=== PATIENT | male | born 1990 | race Caucasian/White ===

== ENCOUNTER 2019-12-26 14:46 | Emergency (ER) | payer OTHER ==
--- NOTE | 2019-12-26 15:02 | ER Document Report ---
ED Medical Screen (RME) - General Stated Complaint: SYNCOPE Time Seen by Provider: 12/26/19 14:58 Mode of Arrival: Ambulatory Information source: Patient Notes: Patient states that he has had left-sided chest pain for the past 3 days. Patient reports syncopal episode x2 that occurred today. Patient states he had one episode around 12:00 and then 1 just prior to arrival. Patient did drive himself here after this. Patient states that he does feel lightheaded. Patient denies any underlying medical history. Patient denies any history of seizures. Syncopal episodes were unwitnessed. I have greeted and performed a rapid initial assessment of this patient. A comprehensive ED assessment and evaluation of the patient, analysis of test results and completion of the medical decision making process will be conducted by additional ED providers. - Related Data Allergies/Adverse Reactions: No Known Allergies Allergy (Verified 12/26/19 14:53) Physical Exam - General General appearance: Alert - Cardiovascular Rhythm: Regular Heart sounds: S1 appreciated, S2 appreciated - Skin Skin Color: Pale
[2019-12-26 15:31] LABS: ABSOLUTE EOSINOPHILS # (AUTO) 0.1 10^3/uL (0.0-0.6); ABSOLUTE LYMPHOCYTES (AUTO) 1.5 10^3/uL (0.5-4.7); ABSOLUTE MONOCYTES (AUTO) 0.5 10^3/uL (0.1-1.4); ABSOLUTE NEUT (AUTO) 4.5 10^3/uL (1.7-8.2); BASOPHILS % (AUTO) 0.8 % (0-2); EOSINOPHILS % (AUTO) 1.1 % (0-6); HEMATOCRIT 43.4 % (37.9-51.0); HEMOGLOBIN 15.2 g/dL (13.5-17.0); LYMPHOCYTES % (AUTO) 21.9 % (13-45); MEAN CORPUSCULAR HEMOGLOBIN 31.6 pg (27.0-33.4); MEAN CORPUSCULAR HGB CONC 35.1 g/dL (32.0-36.0); MEAN CORPUSCULAR VOLUME 90 fl (80-97); MONOCYTES % (AUTO) 7.8 % (3-13); PLATELET COUNT 302 10^3/uL (150-450); RED CELL DISTRIBUTION WIDTH 12.4 % (11.5-14.0); SEGMENTED NEUTROPHILS % (AUTO) 68.4 % (42-78); TOTAL CELLS COUNTED % (AUTO) 100 %; WHITE BLOOD COUNT 6.6 10^3/uL (4.0-10.5)
--- NOTE | 2019-12-26 15:42 | RADIOLOGY REPORT (SQ) ---
EXAM DESCRIPTION: CHEST 2 VIEWS IMAGES COMPLETED DATE/TIME: 12/26/2019 3:33 pm REASON FOR STUDY: cp COMPARISON: None. EXAM PARAMETERS: NUMBER OF VIEWS: two views TECHNIQUE: Digital Frontal and Lateral radiographic views of the chest acquired. RADIATION DOSE: NA LIMITATIONS: none FINDINGS: LUNGS AND PLEURA: No opacities, masses or pneumothorax. No pleural effusion. MEDIASTINUM AND HILAR STRUCTURES: No masses or contour abnormalities. HEART AND VASCULAR STRUCTURES: Heart normal size. No evidence for failure. BONES: No acute findings. HARDWARE: None in the chest. OTHER: No other significant finding. IMPRESSION: NO ACUTE RADIOGRAPHIC FINDING IN THE CHEST. TECHNICAL DOCUMENTATION: JOB ID: [id number] [employer]- All Rights Reserved Reading location - IP/workstation name: [email or web address]
[2019-12-26 15:47] LABS: AMORPHOUS SEDIMENT,URINE TRACE /HPF; APPEARANCE,URINE SLIGHTLY-CLOUDY; BILIRUBIN,URINE NEGATIVE (NEGATIVE); COLOR,URINE YELLOW; GLUCOSE, URINE NEGATIVE (NEGATIVE); KETONES,URINE NEGATIVE (NEGATIVE); LEUKOCYTE ESTERASE,URINE NEGATIVE (NEGATIVE); NITRITE,URINE NEGATIVE (NEGATIVE); PROTEIN,URINE NEGATIVE (NEGATIVE); URINE SPECIFIC GRAVITY 1.012; UROBILINOGEN,URINE NEGATIVE mg/dL (<2.0)
[2019-12-26] MEDS ORDERED: IBUPROFEN 600 MG TABLET PO ONE (15:53)
[2019-12-26] MEDS ORDERED: NORMAL SALINE 1000 ML 1,000 ML IV ONE (15:55)
--- NOTE | 2019-12-26 16:02 | ER Document Report ---
ED Syncope and Near Syncope - General Chief Complaint: Syncope Stated Complaint: SYNCOPE Time Seen by Provider: 12/26/19 14:58 Mode of Arrival: Ambulatory Notes: Patient is a 29-year-old male presents emergency department with a chief complaint of chest pain and 2 syncopal episodes. Patient states that he started to have left-sided chest pain about 3 days ago. States that when he lifts his arms up, pain worse. Patient has not tried any medications to help with the pain. Describes the pain as a dull, aching pain. Patient states that he was sitting up at his desk at home and ended up passing out around noon today. He then went to sit back down and had a second episode of syncope prior to coming here to the emergency department. Patient denies any past medical history. He does not take any medications on a daily basis. - Related Data Allergies/Adverse Reactions: No Known Allergies Allergy (Verified 12/26/19 14:53) Past Medical History - General Information source: Patient - Social History Smoking Status: Former Smoker Chew tobacco use (# tins/day): No Frequency of alcohol use: Occasional Drug Abuse: None Family History: Reviewed & Not Pertinent Patient has suicidal ideation: No Patient has homicidal ideation: No Review of Systems - Review of Systems Notes: REVIEW OF SYSTEMS: CONSTITUTIONAL : Denies recent illness. Denies recent unintentional weight loss. Denies fever, chills, or sweats. EENT: Denies eye, ear, throat, or mouth pain, discharge, or symptoms. Denies nasal or sinus congestion. CARDIOVASCULAR: See HPI. RESPIRATORY: Denies shortness of breath, cough, congestion, difficulty breathing, or wheezing. GASTROINTESTINAL: Denies nausea, vomiting, and diarrhea. Denies abdominal pain. Denies constipation. GENITOURINARY: Denies difficulty urinating, burning, blood in urine, urgency or frequency. MUSCULOSKELETAL: Denies neck and back pain. Denies joint pain or swelling. SKIN: Denies rash, itchiness, or lesions HEMATOLOGIC : Denies easy bruising or bleeding. LYMPHATIC: Denies swollen, painful, enlarged glands. NEUROLOGICAL: Denies no numbness or tingling denies weakness. Denies headache. Denies alteration in speech. See HPI. PSYCHIATRIC: Denies stress, anxiety, alteration in sleep patterns, or depression. All other systems reviewed and negative. Physical Exam - Vital signs Vitals: Temp Pulse Resp BP Pulse Ox 98.6 F 55 L 16 113/59 L 100 12/26/19 14:52 12/26/19 14:52 12/26/19 14:52 12/26/19 14:52 12/26/19 14:52 - Notes Notes: PHYSICAL EXAMINATION: GENERAL: Appears well, healthy, well-nourished, no acute distress. HEAD: Normocephalic, atraumatic. EYES: PERRL, conjunctiva normal, all extraocular movements intact, sclera nonicteric ENT: Moist mucous membranes. NECK: Supple, no noticeable swelling, redness, rash. Normal range of motion. LUNGS: Equal breath sounds bilaterally and clear to auscultation. No wheezes rales or rhonchi. CARDIOVASCULAR: S1-S2, regular rate, regular rhythm. Radial pulses 2+, normal. Tenderness upon palpation at left anterior wall and left posterior chest wall. ABDOMEN: Normoactive bowel sounds. Soft, nontender, no guarding, no rebound tenderness, and no masses palpated. EXTREMITIES: Normal strength and range of motion, no pitting or edema. No cyanosis. NEUROLOGICAL: Moves all extremities upon command. Strength 5/5 in all extremities. PSYCH: Normal mood, normal affect. SKIN: Warm, dry. No rash, lesions, ulcerations noted. Normal skin turgor. Course - Re-evaluation Re-evalutation: 12/26/19 17:05 Patient's labs are essentially unremarkable. Urinalysis and urine toxicology is unremarkable. Chest x-ray is normal. Orthostatic vital signs reported to me by primary RN are normal. I did very lengthy conversation with patient in regards to his stress level. Patient states that he is in school and working full-time. Patient states that he does not get enough rest at night. And for follow-up with a primary care provider. He has insurance, but has not established 1, due to new insurance. Advised him to possibly follow-up with a dialysis biomed technician for Holter monitoring. He is in agreement with this plan. Follow-up precautions were given. Verbal discharge instructions were given to the patient. They verb alized understanding. They are stable for discharge. - Vital Signs Vital signs: Temp Pulse Resp BP Pulse Ox 98.5 F 55 L 20 115/73 97 12/26/19 17:24 12/26/19 14:52 12/26/19 17:24 12/26/19 17:24 12/26/19 17:24 - Laboratory Result Diagrams: 12/26/19 15:14 12/26/19 15:14 Laboratory results interpreted by me: 12/26/19 15:14 Glucose 123 H - EKG Interpretation by Me Additional EKG results interpreted by me: 12/26/19 17:04 Sinus bradycardia. Rate 54. AR 164; QRS 108; QT 412; QTc 391. No ST elevations or depressions noted. Discharge - Discharge Clinical Impression: Chest wall pain Syncope Qualifiers: Syncope type: unspecified Qualified Code(s): R55 - Syncope and collapse Condition: Stable Disposition: HOME, SELF-CARE Additional Instructions: You are seen today in the emergency department for chest wall pain and syncope. Your labs are all normal. I suggest you establish a primary care provider and follow-up with cardiology as needed. Go on your insurance company's website and see who is in network. Call tomorrow and make an appointment. Make sure you are getting plenty of rest.
[2019-12-26 16:13] LABS: ALBUMIN 4.6 g/dL (3.5-5.0); ALKALINE PHOSPHATASE 45 U/L (38-126); ANION GAP 8 (5-19); ASPARTATE AMINO TRANSFERASE 21 U/L (17-59); BILIRUBIN,TOTAL 0.5 mg/dL (0.2-1.3); BLOOD UREA NITROGEN 14 mg/dL (7-20); CALCIUM 9.9 mg/dL (8.4-10.2); CARBON DIOXIDE 27 mmol/L (22-30); CHLORIDE 103 mmol/L (98-107); GLUCOSE 123 mg/dL (75-110); TOTAL PROTEIN 7.3 g/dL (6.3-8.2)
[2019-12-26 16:32] LABS: URINE AMPHETAMINES SCREEN NEGATIVE; URINE BARBITURATES SCREEN NEGATIVE; URINE BENZODIAZEPINES SCREEN NEGATIVE; URINE COCAINE SCREEN NEGATIVE; URINE MARIJUANA (THC) SCREEN NEGATIVE; URINE METHADONE SCREEN NEGATIVE; URINE PHENCYCLIDINE SCREEN NEGATIVE
[2019-12-26 17:30] VITALS: BP 115/73
--- NOTE | 2019-12-26 23:19 | EKG REPORT ---
SEVERITY:- NORMAL ECG - SINUS RHYTHM : Confirmed by: Jackie Escobar 26-Dec-2019 23:18:57
== END 2019-12-26 17:38 | disposition home or self-care (01) ==
LOC: ER 14:46
DX: R55 Syncope and collapse (principal); R07.89 Other chest pain
CPT/HCPCS: 93005; 99284; 96360; 36415; 82550; 83735; 85025; 80053; 81001; 84484; 80307; 71046; 93010; J7030